=== PATIENT | female | born 1955 | race Caucasian/White ===

== ENCOUNTER → 2019-10-15 | Outpatient (CLI) | payer OTHER ==
[~2019-10-15] MED LIST: AMPHETAMINE SAL10 MG PO; MOBIC15 MG PO; PERCOCET 7.5-31 EACH PO; TOPAMAX 100 MG100 MG PO; VIIBRYD40 MG PO
== END ==
LOC: ULTRA 14:45
PROVIDERS: ATTEND Nurse Practitioner
DX: R10.31 Right lower quadrant pain (principal); Z90.710 Acquired absence of both cervix and uterus